=== PATIENT | male | born 1945 | race Caucasian/White ===

== ENCOUNTER 2021-12-24 14:41 | Emergency (ER) | payer MEDICARE, SELFPAY ==
--- NOTE | ~2021-12-24 | XR_ITS ---
EXAMINATION: XR ANKLE, RIGHT CLINICAL INFORMATION: Pain and swelling COMPARISON: None TECHNIQUE: AP, lateral, and mortise views of the right ankle. FINDINGS: Soft tissue swelling about the ankle is seen more so along the medial aspect. Bones however are normal anatomic alignment. I do not appreciate any acute fracture or dislocation. Ankle mortise does not appear to be abnormally widened or irregular. Extensive vascular calcification in XR/XR ankle RT min 3V IMPRESSION: Soft tissue swelling more so medially but I do not appreciate any acute underlying bony abnormality.
--- NOTE | ~2021-12-24 | US_ITS ---
EXAMINATION: US VENOUS ULTRASOUND WITH DOPPLER LOWER EXTREMITY, BILATERAL CLINICAL INFORMATION: Pain COMPARISON: None TECHNIQUE: Ultrasound of the deep veins is performed from the hip to the calf with compression sonography and color and pulse Doppler assessment. Spectral analysis with color-flow imaging is performed. FINDINGS: RIGHT: There is normal venous compression and respiratory variation and augmented flow. The visualized common femoral vein, superficial femoral vein, profunda femoral vein, popliteal vein, and the trifurcation region shows no evidence of deep venous thrombosis. There is no significant popliteal fossa cyst. LEFT: There is normal venous compression and respiratory variation and augmented flow. The visualized common femoral vein, superficial femoral vein, profunda femoral vein, popliteal vein, and the trifurcation region shows no evidence of deep venous thrombosis. There is no significant popliteal fossa cyst. If the patient's symptoms persist, followup ultrasound in 5 days 7 days might be of value to exclude proximal propagation from a non-visualized calf vein. US/US venous duplex LE BI IMPRESSION: No ultrasound evidence of DVT lower extremities.
[2021-12-24 18:26] VITALS: BP 184/88; PULSE 59; RESP 18; TEMP 37; O2SAT 100; BMI 41.5
--- NOTE | 2021-12-24 20:41 | ED.LOWEXIN ---
HPI - Extremity Injury (Lower) General Chief Complaint: Extremity Injury, Lower Stated Complaint: pain in L calf, sent from urgent care Time Seen by Provider: 12/24/21 15:57 Source: patient and family Mode of arrival: ambulatory History of Present Illness HPI Narrative: 76-year-old male with presentation for atraumatic pain of the medial aspect of his right ankle that started when he got up this morning. Patient states that the pain is worse when he dorsiflexes and he can feel it ?all the way up his calf?. He denies any fever or chills but is noted to be diabetic. Patient is on blood thinners at this time. Related Data Allergies Allergy/AdvReac Type Severity Reaction Status Date / Time PredniSONE AdvReac Intermediate Vomiting Uncoded 12/24/21 18:33 Review of Systems Review of Systems: Pertinent positives and negatives as stated in HPI 10 point review of systems is otherwise negative. PMFSH Past Medical History Source: nursing notes reviewed Social History Social History Advance Directives: No Advance Directives Information Provided: Yes Physical Exam Vital Signs: Vital Signs: Last Vital Signs Temp 98.6 F 12/24/21 18:26 Pulse 59 12/24/21 18:26 Resp 18 12/24/21 18:26 BP 184/88 H 12/24/21 18:26 Pulse Ox 100 12/24/21 18:26 O2 Del Method 12/24/21 18:26 BMI result Body Mass Index 41.5 VITAL SIGNS: Reviewed. GENERAL: Elevated BMI Well developed, well nourished, in no acute distress. HEAD: Normocephalic/atraumatic EYES: PERRLA, EOMI EARS: Ext canals without abnormality OROPHARYNX: no oral lesions noted, posterior pharynx clear LUNGS: Normal breath sounds. No adventitious sounds or accessory muscle use. SpO2<100> CARDIOVASCULAR: Regular rate and rhythm without noted murmurs, no JVD or lower extremity edema. ABDOMEN: Soft, non-tender, non-distended with bowel sounds. MUSCULOSKELETAL: No tenderness, deformities, or effusions noted on gross inspection. EXTREMITIES: No cyanosis, clubbing or edema; RIGHT ANKLE: Very mild erythema without warmth or swelling, no deformity pain on palpation along the back of the calf, palpable DP/PT, capillary refill less than 3 seconds, sensation is intact no midfoot tenderness SKIN: Inspection of the skin reveals no rashes NEUROLOGIC: Alert and oriented x 4. Strength and sensation to light touch were grossly intact x 4. Course Course Course Narrative: 76-year-old male with history and clinical presentation consistent with thrombophlebitis and on review of all investigations no evidence to suggest DVT and no clinical suspicion for infection and x-ray negative for acute bony/joint abnormality. There is noted soft tissue swelling on the x-ray, Moar wrap was put in place and patient did get some relief of pain. He is unable to take NSAIDs at this time due to being on Xarelto. He is otherwise discharged home in stable condition with an Omar wrap and instructions to apply ice and follow-up with his primary care provider. Discharge Plan Discharge Clinical Impression: Ankle sprain and strain Patient Disposition: Home, Self-Care Instructions: Ankle Sprain (ED) Additional Instructions: 1. Resume all home medications as prescribed. 2. Recommend using the Omar wrap for additional support for the next 2-3 days. Apply ice to unexposed skin for 10 minutes, 3 to 4 times a day. 3. Follow-up with your primary care provider by calling the office on Sunday morning and setting up an appointment for re-evaluation. Return to the ER for worsening symptoms. Referrals: Karey Murguia MD [Primary Care Provider] -
== END 2021-12-24 21:56 | disposition home or self-care (01) ==
PROVIDERS: Emergency Provider Student in an Organized Health Care Education/Training Program; PCP Internal Medicine
DX: M79.661 Pain in right lower leg (principal); S93.401A Sprain of unspecified ligament of right ankle, initial encounter; S96.911A Strain of unspecified muscle and tendon at ankle and foot level, right foot, initial encounter; X58.XXXA Exposure to other specified factors, initial encounter; E66.9 Obesity, unspecified; Z68.41 Body mass index [BMI] 40.0-44.9, adult; Y93.84 Activity, sleeping; Y92.013 Bedroom of single-family (private) house as the place of occurrence of the external cause; Y99.9 Unspecified external cause status
CPT/HCPCS: 73610; 93970; 99282; 99284

== ENCOUNTER 2022-04-06 13:50 | Outpatient (REF) | payer MEDICARE, SELFPAY | END 2022-04-06 13:51 | disposition home or self-care (01) | LOC: HO.SH 13:50 | PROVIDERS: Visit Provider Physician Assistant Medical | DX: H90.3 Sensorineural hearing loss, bilateral (principal) | CPT/HCPCS: 92557 ==

== ENCOUNTER 2024-03-07 08:33 | Outpatient (REF) | payer MEDICARE, SELFPAY ==
--- NOTE | 2024-03-07 08:40 | PFT_ITS ---
Flows: FEV1: 79 % of predicted at 2.14 L FVC: 75 % of predicted at 2.69 L FEV1/FVC: 80 % Bronchodilator response: Absent Volumes: Total lung capacity: 69 % of predicted at 4.40 L Residual volume: 57 % of predicted at 1.41 L Slow vital capacity: 79 % of predicted at 2.99 L Expiratory reserve volume: 10 % of predicted at 0.10 L Diffusion capacity: Mildly decreased, corrects to normal after adjustment for alveolar ventilation. Impression: Moderate restrictive ventilatory defect with no bronchodilator response. Decreased expiratory reserve volume suggests extrathoracic restriction likely secondary to abdominal obesity. Combination of restrictive ventilatory defect and decreased diffusion capacity suggests underlying pulmonary parenchymal disease. Clinical correlation is advised. MTDD
[2024-03-07 11:26] VITALS: PULSE 83; O2SAT 100
== END 2024-03-07 08:34 | disposition home or self-care (01) ==
LOC: HO.RESP 08:33
PROVIDERS: PCP Internal Medicine; Visit Provider Internal Medicine
DX: R06.09 Other forms of dyspnea (principal)
CPT/HCPCS: 94010; 94640; 94727; 94729

== ENCOUNTER → 2024-03-07 08:40 | Outpatient (BNV) | payer MEDICARE, SELFPAY | PROVIDERS: PCP Internal Medicine; Visit Provider Internal Medicine Pulmonary Disease | DX: R06.09 Other forms of dyspnea (principal) | CPT/HCPCS: 94060; 94727; 94729 ==

== ENCOUNTER 2024-03-19 14:37 | Outpatient (REF) | payer MEDICARE, SELFPAY ==
--- NOTE | ~2024-03-19 | XR_ITS ---
EXAMINATION: XR CHEST CLINICAL INFORMATION: dyspnea on exertion COMPARISON: None available. TECHNIQUE: 2 views of the chest were obtained. FINDINGS: No significant abnormality is noted involving the heart, lungs, mediastinum, bony thorax or soft tissues. XR/XR chest 2V IMPRESSION: Unremarkable examination. Electronically signed by: Remberto Majano MD 03/19/2024 06:29 PM [facility]
== END 2024-03-19 14:38 | disposition home or self-care (01) ==
LOC: HO.XRAY 14:37
PROVIDERS: PCP Internal Medicine; Visit Provider Internal Medicine
DX: R06.09 Other forms of dyspnea (principal)
CPT/HCPCS: 71046